=== PATIENT | male | born 1990 | race Caucasian/White ===

== ENCOUNTER 2025-10-31 23:17 | Outpatient (CLI) | payer OTHER, SELFPAY | END 2025-10-31 23:18 | disposition home or self-care (01) | PROVIDERS: Visit Provider Family Medicine | DX: S89.91XA Unspecified injury of right lower leg, initial encounter (principal); W00.2XXA Other fall from one level to another due to ice and snow, initial encounter; Y92.481 Parking lot as the place of occurrence of the external cause | CPT/HCPCS: A0425; A0427 ==

== ENCOUNTER 2025-10-31 23:50 | Day surgery (SDC) | payer OTHER, SELFPAY ==
--- NOTE | 2025-10-31 23:53 | CRLHL7_ITS ---
For Patients: As a result of the Cures Act, medical imaging exams and procedure reports are released immediately into your electronic medical record. You may view this report before your referring provider. If you have questions, please contact your health care provider. Indication: Trauma. Technique: Two views of the right ankle. Comparison: None. Findings/Impression: Comminuted, displaced fracture of the distal tibial diaphysis with lateral displacement of the distal fracture fragment by up to 1 shaft width. Displaced fracture of the distal fibular diaphysis also present. Ankle mortise maintained. No dislocation. Dictated by Ld Edwards MD @ 11/01/2025 12:23:30 AM (Electronically Signed)
[2025-10-31 23:59] VITALS: BP 103/73; PULSE 89; RESP 20; TEMP 36.6; O2SAT 98; BMI 23.7
[2025-11-01] VITALS (32 sets, daily range): BP systolic 99–141; BP diastolic 52–98; PULSE 72–107; RESP 12–20; TEMP 36.1–36.8; O2SAT 93–100
--- NOTE | 2025-11-01 00:22 | CRLHL7_ITS ---
For Patients: As a result of the Century Cures Act, medical imaging exams and procedure reports are released immediately into your electronic medical record. You may view this report before your referring provider. If you have questions, please contact your health care provider. Indication: Fracture, fall Technique: Noncontrast CT of the right ankle. Comparison: Right tibia and fibula radiographs from the same day Findings: Acute, comminuted, moderately displaced fractures of the distal tibial diaphysis and distal fibula above the level of the ankle mortise joint. Nondisplaced posterior malleolar fracture. No underlying osseous lesion. Soft tissue swelling about distal right lower extremity. Impression: 1. Acute, comminuted, moderately displaced fractures of the distal tibial diaphysis and distal fibula above the level of the ankle mortise joint. 2. Nondisplaced posterior malleolar fracture. Please note that all CT scans at this facility use dose modulation, iterative reconstruction, and/or weight-based dosing when appropriate to reduce radiation dose to as low as reasonably achievable. Dictated by Gary Quiros MD @ 11/01/2025 1:34:14 AM (Electronically Signed)
--- NOTE | 2025-11-01 00:22 | CRLHL7_ITS ---
For Patients: As a result of the Century Cures Act, medical imaging exams and procedure reports are released immediately into your electronic medical record. You may view this report before your referring provider. If you have questions, please contact your health care provider. Indication: Evaluate for further injury, preop, fall on ice. Technique: Right tibia and fibula 4 views. Comparison: Right ankle CT from the same day. Findings: Acute, comminuted, moderately displaced spiral fracture of the distal tibial diaphysis and distal fibula above the level of the ankle mortise joint. Nondisplaced posterior malleolar fracture the proximal tibia and fibula appear intact. No knee joint effusion. No underlying osseous lesion. Soft tissue swelling about distal right lower extremity. Impression: Acute, comminuted and displaced trimalleolar fracture, as described above. Dictated by Gary Quiros MD @ 11/01/2025 1:30:20 AM (Electronically Signed)
[2025-11-01 00:36] LABS: Hemoglobin* 15.0 gm/dL (13.5-17.5)
[2025-11-01 00:50] LABS: Ethanol* 0.24 % (0.01-0.03)
--- NOTE | 2025-11-01 00:55 | ED.GENADULT ---
HPI - General Adult General Chief complaint: Extremity Pain/Injury, Lower Stated complaint: leg fracture Time Seen by Provider: 10/31/25 23:52 History of Present Illness HPI narrative: CC: Right Leg Injury pt. was drinking alcohol tonight when he fell and broke his right leg. denies LOC, hitting head. yelitza splint applied by EMS. ems gave 100mcg fentanyl ivp. no other injuries noted . gcs 15. 35-year-old man presenting to the emergency department by EMS following an injury to his right lower leg. Noting a good deal of pain. Yelitza splint was applied by EMS. Apparently was drinking quite a bit tonight and slipped on the ice with apparent fracture of his right leg. Denies hitting his head. There was no loss consciousness. Denies neck or back pain. No abdominal pain. Has not been vomiting. Did receive fentanyl from EMS en route. Related Data Home Medications ?Medication ?Instructions ?Recorded ?Confirmed dextroamphetamine-amphetamine 20 1 tab PO BID 11/01/25 11/01/25 mg tablet Allergies Allergy/AdvReac Type Severity Reaction Status Date / Time No Known Drug Allergies Allergy Verified 11/01/25 00:20 Review of Systems Status of ROS: Reports: 6 or more systems reviewed and unremarkable except as noted in History and below [facility] Medical History No significant past medical history Surgical History (Updated 11/01/25 @ 00:16 by Jermain Velásquez RN) No significant past surgical history Social History Smoking Status: Never smoker Second hand tobacco smoke exposure: No How often do you have a drink containing alcohol: 2-3 times a week How often do you have six or more drinks on one occasion: Weekly AUDIT-C Alcohol total score: 6 Non-prescribed substance use: denies use Exam Narrative: Exam Narrative: Clearly with some pain but not demonstrating greatly. Eyes are quite injected. Nasopharyngeal congestion. Head looks atraumatic. Mild slurring to his speech. There is a small [place] hemangioma at the left front hairline on his head. Cranial nerves 2-12 to be intact. Neck is supple. Is breathing easily. Lungs appear to be clear. Heart in regular rate and rhythm. Extremities WNL other than right lower extremity where there is a Yelitza splint applied in a stirrup to the right lower leg. There is external rotation of the lower portion of the leg. Const: Vital Signs, click to edit/add: Vital Signs - 24 hr 10/31/25 23:59 11/01/25 00:09 11/01/25 01:24 Temperature 97.8 F Pulse Rate 89 Pulse Rate [Right Pulse Oximeter] 89 Respiratory Rate 20 18 Blood Pressure 129/52 L Blood Pressure [Le ft Upper Arm] 103/73 Pulse Oximetry 98 98 98 Oxygen Delivery Me thod Room Air 11/01/25 02:02 11/01/25 03:45 11/01/25 04:02 Temperature 98.2 F Pulse Rate 96 93 92 Pulse Rate [Right Pulse Oximeter] Respiratory Rate 18 18 18 Blood Pressure 110/65 128/74 108/65 Blood Pressure [Le ft Upper Arm] Pulse Oximetry 96 94 95 Oxygen Delivery Me thod Documenting provider has reviewed patient's vital signs: yes Course Vital Signs Vital signs: Initial Vital Signs Temperature 97.8 F 10/31/25 23:59 Temperature Source Temporal Artery Scan 10/31/25 23:59 Pulse Rate 89 10/31/25 23:59 Respiratory Rate 20 10/31/25 23:59 Blood Pressure 103/73 10/31/25 23:59 Blood Pressure Mean 83 10/31/25 23:59 Blood Pressure Position Supine 10/31/25 23:59 Pulse Oximetry 98 10/31/25 23:59 Oxygen Delivery Method Room Air 10/31/25 23:59 Vital Signs Temperature 97.8 F 10/31/25 23:59 Pulse Rate 89 10/31/25 23:59 Respiratory Rate 20 10/31/25 23:59 Blood Pressure 103/73 10/31/25 23:59 Pulse Oximetry 98 10/31/25 23:59 Oxygen Delivery Method Room Air 10/31/25 23:59 Temperature 98.2 F 11/01/25 02:02 Pulse Rate 92 11/01/25 04:02 Respiratory Rate 18 11/01/25 04:02 Blood Pressure 108/65 11/01/25 04:02 Pulse Oximetry 95 11/01/25 04:02 Oxygen Delivery Method Room Air 10/31/25 23:59 Medications Administered Medications: Discontinued Medications Generic Name Dose Route Start Last Admin Trade Name Freq PRN Reason Stop Dose Admin Hydromorphone HCl 1 mg 11/01/25 00:07 11/01/25 00:21 Hydromorphone 0.5 Mg/0.5 Ml Inj IVP 11/01/25 00:08 1 mg ONCE ONE Administration Hydromorphone HCl 0.5 mg 11/01/25 01:02 11/01/25 01:10 Hydromorphone 0.5 Mg/0.5 Ml Inj IVP 11/01/25 01:03 0.5 mg ONCE ONE Administration Hydromorphone HCl 0.5 mg 11/01/25 02:55 11/01/25 02:58 Hydromorphone 0.5 Mg/0.5 Ml Inj IVP 11/01/25 02:56 0.5 mg ONCE ONE Administration Sodium Chloride 1,000 mls @ 1,000 mls/hr 11/01/25 00:07 11/01/25 01:53 0.9 % Sodium Chloride 1000 Ml IV 11/01/25 01:06 Infused .Q1H ONE Infusion Medical Decision Making MDM Narrative Medical decision making narrative: I would anticipate that there is a fracture of the distal right leg. Concern also would be for fracture dislocation. Does not appear to have sustained other injuries. Will need more pain medicine to accomplish imaging. Ordered for Dilaudid. Normal saline. Initial two-view x-ray of the right ankle independently reviewed by me shows a comminuted fracture at the distal tibia, displaced as well as a distal fibular fracture. Mortise looks intact. This looks like it will require surgical intervention. I did contact Orthopedics directly. They have reviewed images and recommending surgery. As requested will do yet full views of tib-fib as well as dedicated CT ankle. Did review these images as well. Evident that there is also posterior malleolar fracture of the tibia Indication: Trauma. Technique: Two views of the right ankle. Comparison: None. Findings/Impression: Comminuted, displaced fracture of the distal tibial diaphysis with lateral displacement of the distal fracture fragment by up to 1 shaft width. Displaced fracture of the distal fibular diaphysis also present. Ankle mortise maintained. No dislocation. Dictated by Ld Edwards MD @ 11/01/2025 12:23:30 AM Indication: Evaluate for further injury, preop, fall on ice. Technique: Right tibia and fibula 4 views. Comparison: Right ankle CT from the same day. Findings: Acute, comminuted, moderately displaced spiral fracture of the distal tibial diaphysis and distal fibula above the level of the ankle mortise joint. Nondisplaced posterior malleolar fracture the proximal tibia and fibula appear intact. No knee joint effusion. No underlying osseous lesion. Soft tissue swelling about distal right lower extremity. Impression: Acute, comminuted and displaced trimalleolar fracture, as described above. Dictated by Gary Quiros MD @ 11/01/2025 1:30:20 AM Indication: Fracture, fall Technique: Noncontrast CT of the right ankle. Comparison: Right tibia and fibula radiographs from the same day Findings: Acute, comminuted, moderately displaced fractures of the distal tibial diaphysis and distal fibula above the level of the ankle mortise joint. Nondisplaced posterior malleolar fracture. No underlying osseous lesion. Soft tissue swelling about distal right lower extremity. Impression: 1. Acute, comminuted, moderately displaced fractures of the distal tibial diaphysis and distal fibula above the level of the ankle mortise joint. 2. Nondisplaced posterior malleolar fracture. Please note that all CT scans at this facility use dose modulation, iterative reconstruction, and/or weight-based dosing when appropriate to reduce radiation dose to as low as reasonably achievable. Dictated by Gary Quiros MD @ 11/01/2025 1:34:14 AM We did also place in Kwaku Alarcon style ortho glass splint with posterior support for better control of this fracture. Upon removing the same splint there is generalized swelling mild of the lower aspect of the leg. Deformities noted. He has good dorsalis pedis pulses, well-perfused. Has required repeated doses of hydromorphone overnight. Anticipating surgery at this morning. Lab Data Lab results reviewed: Yes I reviewed the patient's lab results Labs: Lab Results 11/01/25 Range/Units 00:22 Hgb 15.0 (13.5-17.5) gm/dL Ethyl Alcohol 0.24 H (0.01-0.03) % Discharge Plan Discharge Clinical Impression: Trimalleolar fracture of right ankle Patient Disposition: XFER to OR Condition: Stable Follow Up/Referrals: Provider,Not a Local [Primary Care Provider, Family Practice]
--- NOTE | 2025-11-01 09:15 | CRLHL7_ITS ---
For Patients: As a result of the Cures Act, medical imaging exams and procedure reports are released immediately into your electronic medical record. You may view this report before your referring provider. If you have questions, please contact your health care provider. INDICATION: Fracture. TECHNIQUE: Intraoperative C-arm fluoroscopy. IMPRESSION: Intraoperative C-arm fluoroscopy was provided. Fluoroscopy time 122 seconds. Four images were captured. Dictated by Neri Pacheco MD @ 11/02/2025 9:03:28 AM (Electronically Signed)
[2025-11-01 09:16] LABS: Ethanol* 0.08 % (0.01-0.03)
[2025-11-01] MEDS: LACTATED RINGERS 1000 ML 1,000 ML 75 ML IV (09:30)
--- NOTE | 2025-11-01 09:38 | P.ORCN_ITS ---
History of Present Illness HPI Date Seen: 11/01/25 Consult date: 11/01/25 Chief complaint: leg fracture Narrative: Garrick is a pleasant 35 yo Male who presented to the [place] ED overnight after sustaining a fall from a standing height following a slip and fall on ice. He had severe pain about his right leg and obvious deformity. Xrays in the ED revealed a comminuted distal 1/3 tibial diaphyseal fx. Orthopedics was consulted to consider surgical fixation of the fracture. In the ED he was found to have a Blood alcohol level of 0.24. PFSH PFS Medical History (Updated 11/01/25 @ 09:44 by Phill Dick MD) Trimalleolar fracture of right ankle ?S82.851A - Displaced trimalleolar fracture of right lower leg, initial encounter for closed fracture (ICD-10) No significant past medical history Surgical History (Updated 11/01/25 @ 00:16 by Jermain Velásquez RN) No significant past surgical history Social History Smoking Status: Never smoker Second hand tobacco smoke exposure: No How often do you have a drink containing alcohol: 2-3 times a week How often do you have six or more drinks on one occasion: Weekly AUDIT-C Alcohol total score: 6 Non-prescribed substance use: denies use Meds Home Medications and Allergies Home Medications ?Medication ?Instructions ?Recorded ?Confirmed ?Type dextroamphetamine-amphetamine 20 1 tab PO BID 11/01/25 11/01/25 History mg tablet Allergies Allergy/AdvReac Type Severity Reaction Status Date / Time No Known Drug Allergies Allergy Verified 11/01/25 00:20 Ortho Exam Narrative Exam Narrative: He is alert and oriented x3. I am seeing him here in the emergency department. He is lying supine in a hospital gurney. He is cooperative with the exam. Earlier exams rooms short-leg splint in place. Generalized swelling about the leg and ankle/foot is noted. Tender to palpation around the distal 1/3 of the leg and the ankle region. Neurologically intact in the superficial and deep peroneal as well as plantar distribution to sensory light touch and motor function. Digit tips pink, warm, brisk cap refill. No significant pain to passive stretch of the toes with flexion or extension. Const Vital Signs, click to edit/add: Vital Signs - 24 hr 10/31/25 23:59 11/01/25 00:09 11/01/25 01:24 Temperature 97.8 F Pulse Rate 89 Pulse Rate [Right Pulse Oximeter] 89 Respiratory Rate 20 18 Blood Pressure 129/52 L Blood Pressure [Left Upper Arm] 103/73 Pulse Oximetry 98 98 98 Oxygen Delivery Method Room Air 11/01/25 02:02 11/01/25 03:45 11/01/25 04:02 Temperature 98.2 F Pulse Rate 96 93 92 Pulse Rate [Right Pulse Oximeter] Respiratory Rate 18 18 18 Blood Pressure 110/65 128/74 108/65 Blood Pressure [Left Upper Arm] Pulse Oximetry 96 94 95 Oxygen Delivery Method 11/01/25 05:02 11/01/25 05:45 11/01/25 06:02 Temperature Pulse Rate 95 98 107 H Pulse Rate [Right Pulse Oximeter] Respiratory Rate Blood Pressure 99/65 112/69 Blood Pressure [Left Upper Arm] Pulse Oximetry 94 93 97 Oxygen Delivery Method 11/01/25 06:15 11/01/25 06:45 11/01/25 07:00 Temperature Pulse Rate 100 96 92 Pulse Rate [Right Pulse Oximeter] Respiratory Rate Blood Pressure Blood Pressure [Left Upper Arm] Pulse Oximetry 94 96 94 Oxygen Delivery Method 11/01/25 07:02 11/01/25 07:03 11/01/25 07:30 Temperature Pulse Rate 99 94 90 Pulse Rate [Right Pulse Oximeter] Respiratory Rate Blood Pressure 121/79 Blood Pressure [Left Upper Arm] Pulse Oximetry 95 96 94 Oxygen Delivery Method 11/01/25 08:02 11/01/25 08:30 11/01/25 09:02 Temperature Pulse Rate 90 89 86 Pulse Rate [Right Pulse Oximeter] Respiratory Rate 20 16 Blood Pressure 115/70 115/79 Blood Pressure [Left Upper Arm] Pulse Oximetry 95 95 97 Oxygen Delivery Method Results Labs Labs: Laboratory Results - last 48 hr 11/01/25 11/01/25 00:22 08:55 Hgb 15.0 Ethyl Alcohol 0.24 H 0.08 H Diagnostic results Additional Comments: AP and lateral right ankle radiographs were ordered by different provider from [facility] dated 11/01/2025 and reviewed by me. This demonstrates an acute appearing distal 1/3 tibial diaphyseal fracture with comminution, varus angulation, and shortening. Also noted is a distal fibular fracture approximately Nuñez C location that is oblique and also moderately displaced. Possible nondisplaced posterior malleolus fracture that is incompletely visualized on the lateral radiograph. AP and lateral right tib-fib radiographs from [facility] dated 11/01/2025 were also ordered by a different provider and reviewed by me. This demonstrates no significant proximal tibia or fibula pathology. However, again visualizes the distal 1/3 tibial diaphyseal oblique fracture with varus angulation, shortening, and comminution. Also seen is the distal fibular diaphyseal fracture. Finally, the posterior malleolus fracture again is appreciated. CT scan of the right ankle from [facility] dated 11/01/2025 was ordered by different provider and reviewed by me. This shows an acute, comminuted, moderately displaced fracture of the distal tibial diaphysis and distal fibula above the ankle mortise level. Nondisplaced posterior malleolus fracture. Assessment and Plan Assessment and plan (1) Closed right tibial fracture: Status: Acute (2) Closed bimalleolar fracture of right ankle: Status: Acute (3) Alcohol intoxication: Status: Acute Plan Given the displaced comminuted nature to this right distal 1/3 tibial diaphyseal acute fracture and the concurrent distal fibular fracture as well as the posterior malleolus fracture (the latter which is nondisplaced), I do think surgery to improve the alignment and stabilize the fractures is prudent. The patient has a blood alcohol level of 0.24. This was around midnight when it was measured. A repeat draw this morning shows that now is 0.08. Therefore, we do feel like he is coherent and appropriate to consent for the surgical procedure. I reviewed the risks and benefits of the surgery with him and his mother, who was present in the room today. This includes local risks (e.g. Infection, wound healing issues, malunion, nonunion, ongoing pain) as well as systemic risks (e.g. VTE, NC, stroke). He states understanding. Indeed he would like to proceed with surgery. We will plan to do that this morning. I have coordinated care with the emergency room physician team and the anesthesia team. Following the procedure, I do anticipate the patient will likely be toe-touch weightbear operative right lower extremity. Crutch ambulation assistance. He does not have crutches. We will need to supply this for him. I would anticipate he would be able to be discharged to home later today so long as he has help at home.
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
--- NOTE | 2025-11-01 12:37 | PC.NURSE ---
block completed at this time, time out done per rn and insurance consultant
--- NOTE | 2025-11-01 13:06 | P.ANES_ITS ---
Anesthesia Charges Start Date/Time Anesthesia Start Date: 11/01/25 Anesthesia Start Time: 09:30 Stop Date/Time Anesthesia Stop Date: 11/01/25 Anesthesia Stop Time: 12:16 Summary Emergency: DRUG SAFETY DATA MANAGEMENT SPECIALIST Coding CPT Codes CPT Codes: ANESTH LOWER LEG BONE SURG - 03663 ([id number]) P2 - PATIENT W/MILD SYST DISEASE, QZ - DRUG SAFETY DATA MANAGEMENT SPECIALIST SVC W/O ENERGY CONSERVATION REPRESENTATIVE BY Additional Codes: Summary - Emergency: DRUG SAFETY DATA MANAGEMENT SPECIALIST ([id number])
--- NOTE | 2025-11-01 13:06 | W.ANESCHARGE ---
Anesthesia Charges Start Date/Time Anesthesia Start Date: 11/01/25 Anesthesia Start Time: 09:30 Stop Date/Time Anesthesia Stop Date: 11/01/25 Anesthesia Stop Time: 12:16 Summary Emergency: TOE LASTER Coding CPT Codes CPT Codes: ANESTH LOWER LEG BONE SURG - 91982 ([id number]) P2 - PATIENT W/MILD SYST DISEASE, QZ - TOE LASTER SVC W/O IT MANAGER BY Additional Codes: Summary - Emergency: TOE LASTER ([id number])
--- NOTE | 2025-11-01 13:07 | P.NB_ITS ---
Nerve Block Nerve Block Time Seen by Provider: 12:37 Date Seen: 11/01/25 Type of block requested by surgeon for post-operative analgesia: popliteal Side: right Time out performed: Yes Verification of patient name: Yes Verification of date of : Yes Site marking: not applicable Name of person performing procedure: FridaLakeshia Amna Continuous monitoring Was continuous monitoring of O2 sat, B/P, imaging manager, recorded every 15 minutes?: Yes Procedure Checklist: sterile prep, needles and gloves Ultrasound guided. Images saved: Yes Medications given in 5ml increments after negative aspiration: Ropivicaine %: 0.5 mL: 15 Needle gauge: 20 Patient tolerated procedure well: Yes Block Charges Block Charge (with Pro Fee): Sciatic Nerve Use of Ultrasound Machine for Block: Yes- US Guidance/pain block
--- NOTE | 2025-11-01 13:09 | P.NB_ITS ---
Nerve Block Nerve Block Time Seen by Provider: 12:37 Date Seen: 11/01/25 Type of block requested by surgeon for post-operative analgesia: adductor canal Side: right Time out performed: Yes Verification of patient name: Yes Verification of date of : Yes Site marking: site marked Name of person performing procedure: Serina Amna Continuous monitoring Was continuous monitoring of O2 sat, B/P, environmental monitoring specialist, recorded every 15 minutes?: Yes Procedure Checklist: sterile prep, needles and gloves Ultrasound guided. Images saved: Yes Medications given in 5ml increments after negative aspiration: Ropivicaine %: 0.5 mL: 15 Needle gauge: 20 Patient tolerated procedure well: Yes Block Charges Block Charge (with Pro Fee): Femoral Nerve Use of Ultrasound Machine for Block: Yes- US Guidance/pain block
--- NOTE | 2025-11-01 13:20 | PC.NURSE ---
Spoke with ortho and OK for patient to d/c when SDS criteria is met and does not need full doses of Ancef.
[2025-11-01] MEDS: ACETAMINOPHEN 325 MG TABLET 650 MG PO (15:50)
--- NOTE | 2025-11-01 18:55 | PC.NURSE ---
Discharge - RN took over pt care at approximately 1230. Pt alert, oriented, and coopertive. Up with toe touch weight bearing on surgical foot per MD order with axillary crutches. RN provided education r/t ambulation with crutches with pt and family verbalizing understanding. Pt reported pain in surgical leg as 6/10. Given medication per MAR with little improvement. RN reassessed pt discomfort and discussed pain goals, given additional medication per MAR. Pt reported minor improvement of pain. Tolerating RA and regular diet/fluids. Pt and caregivers provided with education r/t ambulation, medication management, symptoms worsening, and follow up. Pt and caregivers verbalized understanding. Pt d/c'd to home with caregivers via wheelchair at approximately 1845.
== END 2025-11-01 18:45 | disposition home or self-care (01) ==
LOC: ED 11-01 08:59 → OR 11-01 09:32 → MEDSURG 11-01 13:26
PROVIDERS: Emergency Provider Family Medicine; Visit Provider Orthopaedic Surgery Sports Medicine
PROC: (CPT 27759; principal; 2025-11-01 09:15)
DX: S82.391A Other fracture of lower end of right tibia, initial encounter for closed fracture (principal); S82.831A Other fracture of upper and lower end of right fibula, initial encounter for closed fracture; S82.891A Other fracture of right lower leg, initial encounter for closed fracture; F10.129 Alcohol abuse with intoxication, unspecified; Y90.8 Blood alcohol level of 240 mg/100 ml or more; G89.18 Other acute postprocedural pain; W00.0XXA Fall on same level due to ice and snow, initial encounter
CPT/HCPCS: 27759; 01480; 29515; 36415; 64445; 64447; 73590; 73600; 73700; 76942; 82077; 85018; 94761; 99140; 99284; 99285; A9270; C1713; J0690; J1100; J1171; J2250; J2405; J2704; J3475; J3490; J7030; J7120